=== PATIENT | male | born 1980 | race African-American/Black ===

== ENCOUNTER 2019-04-14 12:37 | Inpatient (IN) | payer OTHER ==
[2019-04-14 17:54] VITALS: BMI 26.6
--- NOTE | 2019-04-14 18:57 | HP ---
CIWA Score - Admission Criteria OASAS Guidelines: Admission for Medically Managed Detox: Requires at least one of the followin. CIWA greater than 12 2. Seizures within the past 24 hours 3. Delirium tremens within the past 24 hours 4. Hallucinations within the past 24 hours 5. Acute intervention needed for co occurring medical disorder 6. Acute intervention needed for co occurring psychiatric disorder 7. Severe withdrawal that cannot be handled at a lower level of care (continued vomiting, continued diarrhea, abnormal vital signs) requiring intravenous medication and/or fluids 8. Admission ROS BHS - HPI Chief Complaint: here for rehab from alcohol and crystal meth 39 yo with HIV, PTSD and depression, says he was admitted for 13 days at [facility] for PTDS/depression and detox from alcohol. Says they referred him here for rehab services. Lives in [place]. PCP- Dr. Dillan Jernigan. Does not work. Lives in a skilled nursing. DUR- no recent meds Allergies/Adverse Reactions: Allergies Allergy/AdvReac Type Severity Reaction Status Date / Time No Known Allergies Allergy Verified 04/14/19 17:41 - Ebola screening Have you traveled outside of the country in the last 21 days: No Have you had contact with anyone from an Ebola affected area: No Patient History - Patient Medical History Hx Human Immunodeficiency Virus (HIV): Yes Other Medical History: PTSD, depression - Patient Surgical History Hx Genitourinary Surgery: Yes (groin hernia surgery) - PPD History Documented Results: Negative w/proof - Smoking Cessation Smoking history: Current every day smoker Have you smoked in the past 12 months: Yes Aproximately how many cigarettes per day: 3 Hx Chewing Tobacco Use: No Initiated information on smoking cessation: Yes 'Breaking Loose' booklet given: 04/14/19 - Substance & Tx. History Hx Alcohol Use: Yes Hx Substance Use Treatment: Yes - Substances abused Alcohol Other (specify): Vodka Substance route: Oral Frequency: 3-6 times per week Amount used: 1/2 bottle Age of first use: 22 Date of last use: 04/13/19 Admission Physical Exam [facility] - Vital Signs Vital Signs: Vital Signs - 24 hr 04/14/19 04/14/19 17:35 18:37 Temperature 97.9 F 97.9 F Pulse Rate 72 72 Respiratory 18 18 Rate Blood Pressure 123/82 123/82 - Physical General Appearance: Yes: No Apparent Distress, Nourished HEENTM: Yes: Within Normal Limits, EOMI Respiratory: Yes: Within Normal Limits, Lungs Clear Neck: Yes: Within Normal Limits, No masses,lesions,Nodules Cardiology: Yes: Within Normal Limits, Regular Rate, S1, S2 Abdominal: Yes: Within Normal Limits, Protuberent Back: Yes: Within Normal Limits, Normal Inspection Musculoskeletal: Yes: Within Normal Limits Extremities: Yes: Within Normal Limits Neurological: Yes: Within Normal Limits, 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 intact, Fully Oriented Integumentary: Yes: Within Normal Limits - Diagnostic (1) Alcohol use disorder Current Visit: Yes Status: Acute (2) Amphetamine abuse Current Visit: Yes Status: Acute (3) HIV (human immunodeficiency virus infection) Current Visit: Yes Status: Acute (4) PTSD (post-traumatic stress disorder) Current Visit: Yes Status: Acute (5) Depression Current Visit: Yes Status: Acute Breathalyzer - Breathalyzer Breathalyzer: 0 Urine Drug Screen - Test Device Lot number: [id number] Expiration date: 12/26/20 - Control Is test valid?: Yes - Results Drug screen NEGATIVE: Yes Inpatient Rehab Admission - Rehab Decision to Admit Inpatient rehab admission?: Yes - Initial Determination Are CD services needed?: Yes Free of communicable disease: Yes Not in need of hospitalization: Yes - Rehab Admission Criteria Previous failed treatment: Yes Poor recovery environment: Yes Comorbidities: Yes Lacks judgement: Yes Patient is meeting Inpatient Rehab admission criteria:: Yes (cocaine and alcohol rehab)
[2019-04-14] MEDS ORDERED: MAGNESIUM HYDROX 2400MG/30ML ORAL SUSPENSION 30 ML CUP PO PRN (19:02)
[2019-04-14] MEDS ORDERED: IBUPROFEN 400 MG TABLET (FP) PO PRN (19:02)
[2019-04-14] MEDS ORDERED: MAGNESIUM CITRATE 300 ML BOTTLE PO PRN (19:02)
[2019-04-14] MEDS ORDERED: MENTHOL/PHENOL 1 EACH UD MM PRN (19:02)
[2019-04-14] MEDS ORDERED: guaiFENesin 200 MG/10 ML 10 ML UNIT-DOSE CUPS PO PRN (19:02)
[2019-04-14] MEDS ORDERED: LOPERAMIDE HCL 2 MG CAPSULE PO PRN (19:02)
[2019-04-14] MEDS ORDERED: P-EPHED 60MG/TRIPROLIDI 2.5MG TABLET PO PRN (19:02)
[2019-04-14] MEDS ORDERED: ACETAMINOPHEN 325 MG TABLET (FP) PO PRN (19:02)
[2019-04-14] MEDS ORDERED: TUBERCULIN PPD 5 TU/0.1ML VIAL ID ONE (20:55)
[2019-04-14] MEDS: traZODone HCL 100 MG TABLET (FP) PO SCH (21:21)
[2019-04-14] MEDS: THIAMINE HCL 100 MG TABLET (FP) PO SCH (21:21)
[2019-04-14] MEDS: NICOTINE POLACRILEX 2 MG GUM BC PRN (21:24)
[2019-04-14] MEDS ORDERED: PRAZOSIN HCL 2 MG CAPSULE PO SCH (22:00)
[2019-04-14] MEDS: PRAZOSIN HCL 1 MG CAPSULE PO SCH (23:29)
[2019-04-15] MEDS: OLANZapine 10 MG TABLET PO SCH (09:54)
[2019-04-15] MEDS: NICOTINE 7 MG/24 HOURS TOPICAL PATCH TD SCH (09:54)
[2019-04-15] MEDS: SERTRALINE HCL 50 MG TABLET (FP) PO SCH (09:55)
[2019-04-15] MEDS: PRENATAL VITAMINS W/ FOLIC ACID TABLET (FP) PO SCH (09:55)
[2019-04-15] MEDS: PATIENT'S OWN MEDICATION (NON-FORMULARY) (Bictegrav/Emtricit/Tenofov Ala 1 EACH) PO SCH (11:00)
[2019-04-15 11:49] LABS: ALBUMIN 3.7 g/dl (3.4-5.0); BILIRUBIN,TOTAL 0.2 mg/dL (0.2-1); BLOOD UREA NITROGEN 9.3 mg/dL (7-18); CALCIUM 8.5 mg/dL (8.5-10.1); CREATININE 1.1 mg/dL (0.55-1.3); TOT PROT 6.9 g/dl (6.4-8.2)
[2019-04-15 11:55] LABS: HEMATOCRIT 35.6 % (35.4-49); HEMOGLOBIN 12.3 GM/dL (11.7-16.9); MCH 31.3 pg (25.7-33.7); MCHC 34.4 g/dl (32.0-35.9); MEAN PLT VOLUME 8.2 fl (7.5-11.1); PLATELET COUNT 211 K/MM3 (134-434); RBC 3.92 M/mm3 (4.00-5.60); RDW 13.4 % (11.9-15.9); WHITE BLOOD COUNT 3.5 K/mm3 (4.0-10.0)
[2019-04-15] MEDS: hydrOXYzine PAMOATE 25 MG CAPSULE (FP) PO PRN (12:56)
[2019-04-15] MEDS: MAG HYDROX/AL HYDROX/SIMETH 30 ML UNIT-DOSE CUP PO PRN (12:56)
[2019-04-15 18:47] LABS: PH,URINE 8.5 (5.0-8.0); URINE APPEARANCE CLEAR; URINE BILIRUBIN NEGATIVE (NEGATIVE); URINE COLOR YELLOW; URINE GLUCOSE (UA) NEGATIVE (NEGATIVE); URINE KETONE NEGATIVE (NEGATIVE); URINE LEUK ESTERASE NEGATIVE (NEGATIVE); URINE NITRITE NEGATIVE (NEGATIVE); URINE PROTEIN NEGATIVE (NEGATIVE); URINE UROBILINOGEN 0.2 mg/dL (0.2-1.0)
[2019-04-15] MEDS: THIAMINE HCL 100 MG TABLET (FP) PO SCH (21:31)
[2019-04-15] MEDS: PRAZOSIN HCL 1 MG CAPSULE PO SCH (21:31)
[2019-04-15] MEDS: traZODone HCL 100 MG TABLET (FP) PO SCH (21:31)
[2019-04-16] MEDS: PATIENT'S OWN MEDICATION (NON-FORMULARY) (Bictegrav/Emtricit/Tenofov Ala 1 EACH) PO SCH (10:14)
[2019-04-16] MEDS: hydrOXYzine PAMOATE 25 MG CAPSULE (FP) PO PRN (10:14)
[2019-04-16] MEDS: PRENATAL VITAMINS W/ FOLIC ACID TABLET (FP) PO SCH (10:14)
[2019-04-16] MEDS: SERTRALINE HCL 50 MG TABLET (FP) PO SCH (10:14)
[2019-04-16] MEDS: NICOTINE 7 MG/24 HOURS TOPICAL PATCH TD SCH (10:14)
[2019-04-16] MEDS: OLANZapine 10 MG TABLET PO SCH (10:15)
[2019-04-16] MEDS: NICOTINE POLACRILEX 2 MG GUM BC PRN (10:16)
[2019-04-16] MEDS: traZODone HCL 100 MG TABLET (FP) PO SCH (21:16)
[2019-04-16] MEDS: THIAMINE HCL 100 MG TABLET (FP) PO SCH (21:17)
[2019-04-16] MEDS: PRAZOSIN HCL 1 MG CAPSULE PO SCH (21:17)
[2019-04-17] MEDS: PATIENT'S OWN MEDICATION (NON-FORMULARY) (Bictegrav/Emtricit/Tenofov Ala 1 EACH) PO SCH (09:54)
[2019-04-17] MEDS: OLANZapine 10 MG TABLET PO SCH (09:54)
[2019-04-17] MEDS: SERTRALINE HCL 50 MG TABLET (FP) PO SCH (09:54)
[2019-04-17] MEDS: PRENATAL VITAMINS W/ FOLIC ACID TABLET (FP) PO SCH (09:54)
[2019-04-17] MEDS: NICOTINE 7 MG/24 HOURS TOPICAL PATCH TD SCH (09:54)
[2019-04-17] MEDS ORDERED: PT OWN MED DRAWER 7, Y5N ONE (09:55)
[2019-04-17] MEDS: THIAMINE HCL 100 MG TABLET (FP) PO SCH (21:53)
[2019-04-17] MEDS: MELATONIN 5 MG TABLETS PO PRN (21:53)
[2019-04-17] MEDS: PRAZOSIN HCL 1 MG CAPSULE PO SCH (21:54)
[2019-04-17] MEDS: traZODone HCL 100 MG TABLET (FP) PO SCH (21:54)
[2019-04-17] MEDS: NICOTINE POLACRILEX 2 MG GUM BC PRN (21:54)
[2019-04-18] MEDS ORDERED: PT OWN MED DRAWER 7, Y5N ONE (08:38)
[2019-04-18] MEDS: PATIENT'S OWN MEDICATION (NON-FORMULARY) (Bictegrav/Emtricit/Tenofov Ala 1 EACH) PO SCH (09:44)
[2019-04-18] MEDS: PRENATAL VITAMINS W/ FOLIC ACID TABLET (FP) PO SCH (09:44)
[2019-04-18] MEDS: SERTRALINE HCL 50 MG TABLET (FP) PO SCH (09:44)
[2019-04-18] MEDS: OLANZapine 10 MG TABLET PO SCH (09:44)
[2019-04-18] MEDS: NICOTINE 7 MG/24 HOURS TOPICAL PATCH TD SCH (09:44)
[2019-04-18] MEDS: MAG HYDROX/AL HYDROX/SIMETH 30 ML UNIT-DOSE CUP PO PRN ×2 (09:45→21:22)
[2019-04-18] MEDS: THIAMINE HCL 100 MG TABLET (FP) PO SCH (21:22)
[2019-04-18] MEDS: traZODone HCL 100 MG TABLET (FP) PO SCH (21:22)
[2019-04-18] MEDS: PRAZOSIN HCL 1 MG CAPSULE PO SCH (21:22)
[2019-04-19] MEDS ORDERED: PT OWN MED DRAWER 7, Y5N ONE (08:53)
[2019-04-19] MEDS: OLANZapine 10 MG TABLET PO SCH (09:45)
[2019-04-19] MEDS: PRENATAL VITAMINS W/ FOLIC ACID TABLET (FP) PO SCH (09:45)
[2019-04-19] MEDS: SERTRALINE HCL 50 MG TABLET (FP) PO SCH (09:46)
[2019-04-19] MEDS: PATIENT'S OWN MEDICATION (NON-FORMULARY) (Bictegrav/Emtricit/Tenofov Ala 1 EACH) PO SCH (09:46)
[2019-04-19] MEDS: NICOTINE 7 MG/24 HOURS TOPICAL PATCH TD SCH (09:46)
[2019-04-19] MEDS: traZODone HCL 100 MG TABLET (FP) PO SCH (21:18)
[2019-04-19] MEDS: PRAZOSIN HCL 1 MG CAPSULE PO SCH (21:18)
[2019-04-19] MEDS: THIAMINE HCL 100 MG TABLET (FP) PO SCH (21:18)
[2019-04-20] MEDS: PRENATAL VITAMINS W/ FOLIC ACID TABLET (FP) PO SCH (09:36)
[2019-04-20] MEDS: OLANZapine 10 MG TABLET PO SCH (09:36)
[2019-04-20] MEDS: NICOTINE 7 MG/24 HOURS TOPICAL PATCH TD SCH (09:36)
[2019-04-20] MEDS: PATIENT'S OWN MEDICATION (NON-FORMULARY) (Bictegrav/Emtricit/Tenofov Ala 1 EACH) PO SCH (09:36)
[2019-04-20] MEDS: SERTRALINE HCL 50 MG TABLET (FP) PO SCH (09:36)
[2019-04-20] MEDS: MAG HYDROX/AL HYDROX/SIMETH 30 ML UNIT-DOSE CUP PO PRN ×2 (09:37→17:56)
[2019-04-20] MEDS: NICOTINE POLACRILEX 2 MG GUM BC PRN (09:39)
[2019-04-20] MEDS: THIAMINE HCL 100 MG TABLET (FP) PO SCH (21:45)
[2019-04-20] MEDS: PRAZOSIN HCL 1 MG CAPSULE PO SCH (21:46)
[2019-04-20] MEDS: traZODone HCL 100 MG TABLET (FP) PO SCH (21:46)
[2019-04-21] MEDS: PRENATAL VITAMINS W/ FOLIC ACID TABLET (FP) PO SCH (09:58)
[2019-04-21] MEDS: SERTRALINE HCL 50 MG TABLET (FP) PO SCH (09:58)
[2019-04-21] MEDS: PATIENT'S OWN MEDICATION (NON-FORMULARY) (Bictegrav/Emtricit/Tenofov Ala 1 EACH) PO SCH (09:58)
[2019-04-21] MEDS: NICOTINE 7 MG/24 HOURS TOPICAL PATCH TD SCH (09:58)
[2019-04-21] MEDS: OLANZapine 10 MG TABLET PO SCH (09:58)
[2019-04-21] MEDS: NICOTINE POLACRILEX 2 MG GUM BC PRN (10:00)
[2019-04-21] MEDS: THIAMINE HCL 100 MG TABLET (FP) PO SCH (21:18)
[2019-04-21] MEDS: traZODone HCL 100 MG TABLET (FP) PO SCH (21:18)
[2019-04-21] MEDS: PRAZOSIN HCL 1 MG CAPSULE PO SCH (21:18)
[2019-04-22] MEDS: NICOTINE 7 MG/24 HOURS TOPICAL PATCH TD SCH (10:21)
[2019-04-22] MEDS: PRENATAL VITAMINS W/ FOLIC ACID TABLET (FP) PO SCH (10:21)
[2019-04-22] MEDS: SERTRALINE HCL 50 MG TABLET (FP) PO SCH (10:21)
[2019-04-22] MEDS: PATIENT'S OWN MEDICATION (NON-FORMULARY) (Bictegrav/Emtricit/Tenofov Ala 1 EACH) PO SCH (10:21)
[2019-04-22] MEDS: OLANZapine 10 MG TABLET PO SCH (10:21)
[2019-04-22] MEDS: NICOTINE POLACRILEX 2 MG GUM BC PRN ×2 (10:23→21:40)
[2019-04-22] MEDS: PRAZOSIN HCL 1 MG CAPSULE PO SCH (21:40)
[2019-04-22] MEDS: THIAMINE HCL 100 MG TABLET (FP) PO SCH (21:40)
[2019-04-22] MEDS: traZODone HCL 100 MG TABLET (FP) PO SCH (21:40)
[2019-04-22] MEDS: MAG HYDROX/AL HYDROX/SIMETH 30 ML UNIT-DOSE CUP PO PRN (21:41)
[2019-04-23] MEDS: PATIENT'S OWN MEDICATION (NON-FORMULARY) (Bictegrav/Emtricit/Tenofov Ala 1 EACH) PO SCH (09:58)
[2019-04-23] MEDS: OLANZapine 10 MG TABLET PO SCH (09:58)
[2019-04-23] MEDS: NICOTINE 7 MG/24 HOURS TOPICAL PATCH TD SCH (09:58)
[2019-04-23] MEDS: PRENATAL VITAMINS W/ FOLIC ACID TABLET (FP) PO SCH (09:58)
[2019-04-23] MEDS: SERTRALINE HCL 50 MG TABLET (FP) PO SCH (09:58)
[2019-04-23] MEDS: MAG HYDROX/AL HYDROX/SIMETH 30 ML UNIT-DOSE CUP PO PRN (09:59)
--- NOTE | 2019-04-23 14:56 | PN ---
S Progress Note Note: Patient was approached at bedside for interview. 

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
[2019-04-23] MEDS: traZODone HCL 100 MG TABLET (FP) PO SCH (21:22)
[2019-04-23] MEDS: THIAMINE HCL 100 MG TABLET (FP) PO SCH (21:22)
[2019-04-23] MEDS: PRAZOSIN HCL 1 MG CAPSULE PO SCH (21:22)
[2019-04-24] MEDS: PRENATAL VITAMINS W/ FOLIC ACID TABLET (FP) PO SCH (10:05)
[2019-04-24] MEDS: SERTRALINE HCL 50 MG TABLET (FP) PO SCH (10:05)
[2019-04-24] MEDS: OLANZapine 10 MG TABLET PO SCH (10:05)
[2019-04-24] MEDS: NICOTINE 7 MG/24 HOURS TOPICAL PATCH TD SCH (10:05)
[2019-04-24] MEDS: PATIENT'S OWN MEDICATION (NON-FORMULARY) (Bictegrav/Emtricit/Tenofov Ala 1 EACH) PO SCH (10:06)
[2019-04-24] MEDS: MAG HYDROX/AL HYDROX/SIMETH 30 ML UNIT-DOSE CUP PO PRN (10:07)
[2019-04-24] MEDS: NICOTINE POLACRILEX 2 MG GUM BC PRN (10:09)
[2019-04-24] MEDS: THIAMINE HCL 100 MG TABLET (FP) PO SCH (21:14)
[2019-04-24] MEDS: PRAZOSIN HCL 1 MG CAPSULE PO SCH (21:15)
[2019-04-24] MEDS: traZODone HCL 100 MG TABLET (FP) PO SCH (21:15)
[2019-04-25] MEDS: PATIENT'S OWN MEDICATION (NON-FORMULARY) (Bictegrav/Emtricit/Tenofov Ala 1 EACH) PO SCH (09:58)
[2019-04-25] MEDS: OLANZapine 10 MG TABLET PO SCH (09:59)
[2019-04-25] MEDS: PRENATAL VITAMINS W/ FOLIC ACID TABLET (FP) PO SCH (09:59)
[2019-04-25] MEDS: NICOTINE 7 MG/24 HOURS TOPICAL PATCH TD SCH (09:59)
[2019-04-25] MEDS: SERTRALINE HCL 50 MG TABLET (FP) PO SCH (09:59)
[2019-04-25] MEDS: PRAZOSIN HCL 1 MG CAPSULE PO SCH (21:31)
[2019-04-25] MEDS: THIAMINE HCL 100 MG TABLET (FP) PO SCH (21:31)
[2019-04-25] MEDS: traZODone HCL 100 MG TABLET (FP) PO SCH (21:31)
[2019-04-26] MEDS: SERTRALINE HCL 50 MG TABLET (FP) PO SCH (09:33)
[2019-04-26] MEDS: OLANZapine 10 MG TABLET PO SCH (09:33)
[2019-04-26] MEDS: PRENATAL VITAMINS W/ FOLIC ACID TABLET (FP) PO SCH (09:33)
[2019-04-26] MEDS: NICOTINE 7 MG/24 HOURS TOPICAL PATCH TD SCH (09:33)
[2019-04-26] MEDS: PATIENT'S OWN MEDICATION (NON-FORMULARY) (Bictegrav/Emtricit/Tenofov Ala 1 EACH) PO SCH (09:33)
[2019-04-26] MEDS: PRAZOSIN HCL 1 MG CAPSULE PO SCH (21:31)
[2019-04-26] MEDS: NICOTINE POLACRILEX 2 MG GUM BC PRN (21:32)
[2019-04-26] MEDS: MAG HYDROX/AL HYDROX/SIMETH 30 ML UNIT-DOSE CUP PO PRN (21:32)
[2019-04-26] MEDS: traZODone HCL 100 MG TABLET (FP) PO SCH (21:32)
[2019-04-26] MEDS: THIAMINE HCL 100 MG TABLET (FP) PO SCH (21:32)
[2019-04-27] MEDS ORDERED: PT OWN MED DRAWER 7, Y5N ONE (09:20)
[2019-04-27] MEDS: NICOTINE 7 MG/24 HOURS TOPICAL PATCH TD SCH (10:20)
[2019-04-27] MEDS: SERTRALINE HCL 50 MG TABLET (FP) PO SCH (10:20)
[2019-04-27] MEDS: NICOTINE POLACRILEX 2 MG GUM BC PRN ×4 (10:20→22:00)
[2019-04-27] MEDS: PATIENT'S OWN MEDICATION (NON-FORMULARY) (Bictegrav/Emtricit/Tenofov Ala 1 EACH) PO SCH (10:20)
[2019-04-27] MEDS: OLANZapine 10 MG TABLET PO SCH (10:20)
[2019-04-27] MEDS: PRENATAL VITAMINS W/ FOLIC ACID TABLET (FP) PO SCH (10:20)
[2019-04-27] MEDS: MAG HYDROX/AL HYDROX/SIMETH 30 ML UNIT-DOSE CUP PO PRN (22:00)
[2019-04-27] MEDS: THIAMINE HCL 100 MG TABLET (FP) PO SCH (22:01)
[2019-04-27] MEDS: MELATONIN 5 MG TABLETS PO PRN (22:01)
[2019-04-27] MEDS: PRAZOSIN HCL 1 MG CAPSULE PO SCH (22:01)
[2019-04-27] MEDS: traZODone HCL 100 MG TABLET (FP) PO SCH (22:01)
--- NOTE | 2019-04-28 06:20 | PN ---
[facility] Progress Note Note: Patient is scheduled for discharge today. Scripts for 30 days supply of medications(Zoloft 50 mg/day, Trazadone 100 mg/hs, Prazosin 2 mg/hs, Zyprexa 10 mg/day) are electronically transmitted to [facility] at [address] [place] [id number]
[2019-04-28 06:47] VITALS: BP 122/85; PULSE 84; TEMP 97.6
[2019-04-28] MEDS ORDERED: PT OWN MED DRAWER 7, Y5N ONE (08:51)
[2019-04-28] MEDS: OLANZapine 10 MG TABLET PO SCH (09:09)
[2019-04-28] MEDS: SERTRALINE HCL 50 MG TABLET (FP) PO SCH (09:09)
[2019-04-28] MEDS: PRENATAL VITAMINS W/ FOLIC ACID TABLET (FP) PO SCH (09:09)
[2019-04-28] MEDS: PATIENT'S OWN MEDICATION (NON-FORMULARY) (Bictegrav/Emtricit/Tenofov Ala 1 EACH) PO SCH (09:09)
[2019-04-28] MEDS: NICOTINE 7 MG/24 HOURS TOPICAL PATCH TD SCH (09:09)
[2019-04-28] MEDS: NICOTINE POLACRILEX 2 MG GUM BC PRN (09:12)
--- NOTE | 2019-04-28 12:53 | PN ---
[facility] Progress Note Note: PATIENT COMPLETED REHAB TODAY AND IS SCHEDULED TO FOLLOW UP WITH [facility] 04/29/19. PATIENT STATES HE ACCOMPLISHED ALL REHAB GOALS AND WAS PLEASED WITH [facility] PROGRAM. PATIENT ENCOURAGED TO CONTINUE WITH GROUP MEETINGS TO PREVENT RELAPSE AND TO FOLLOW UP WITH PCP WITHIN ONE WEEK OF DISCHARGE TO CONTINUE MEDICAL MANAGEMENT. PATIENT IS MEDICALLY STABLE AND DENIES SI/HI. MEDICATION SENT TO PREFERRED PHARMACY. Vital Signs Temperature 97.6 F 04/28/19 06:46 Pulse Rate 84 04/28/19 06:46 Respiratory Rate 18 04/28/19 06:46 Blood Pressure 122/85 04/28/19 06:46 O2 Sat by Pulse Oximetry (%) Laboratory Tests 04/14/19 04/14/19 04/14/19 08:20 08:20 08:20 WBC 3.5 L RBC 3.92 L Hgb 12.3 Hct 35.6 MCV 91.0 MCH 31.3 MCHC 34.4 RDW 13.4 Plt Count 211 MPV 8.2 Sodium 142 Potassium 4.0 Chloride 105 Carbon Dioxide 31 Anion Gap 6 L BUN 9.3 Creatinine 1.1 Est GFR (CKD-EPI)AfAm 98.18 Est GFR (CKD-EPI)NonAf 84.71 Random Glucose 102 Calcium 8.5 Total Bilirubin 0.2 AST 112 H ALT 177 H Alkaline Phosphatase 64 Total Protein 6.9 Albumin 3.7 Urine Color Urine Appearance Urine pH Ur Specific [place] Urine Protein Urine Glucose (UA) Urine Ketones Urine Blood Urine Nitrite Urine Bilirubin Urine Urobilinogen Ur Leukocyte Esterase Urine WBC (Auto) Urine RBC (Auto) Urine Casts (Auto) U Pathogenic Cast Auto U Epithel Cells (Auto) U Sm Round Cell (Auto) Urine Crystals (Auto) Urine Bacteria (Auto) RPR Titer Nonreactive 04/14/19 15:45 WBC RBC Hgb Hct MCV MCH MCHC RDW Plt Count MPV Sodium Potassium Chloride Carbon Dioxide Anion Gap BUN Creatinine Est GFR (CKD-EPI)AfAm Est GFR (CKD-EPI)NonAf Random Glucose Calcium Total Bilirubin AST ALT Alkaline Phosphatase Total Protein Albumin Urine Color Yellow Urine Appearance Clear Urine pH 8.5 H Ur Specific [place] 1.005 L Urine Protein Negative Urine Glucose (UA) Negative Urine Ketones Negative Urine Blood Negative Urine Nitrite Negative Urine Bilirubin Negative Urine Urobilinogen 0.2 Ur Leukocyte Esterase Negative Urine WBC (Auto) No Result Required. Urine RBC (Auto) No Result Required. Urine Casts (Auto) No Result Required. U Pathogenic Cast Auto No Result Required. U Epithel Cells (Auto) No Result Required. U Sm Round Cell (Auto) No Result Required. Urine Crystals (Auto) No Result Required. Urine Bacteria (Auto) No Result Required. RPR Titer Ambulatory Orders Bictegrav/Emtricit/Tenofov Ala [Biktarvy 50-200-25 mg Tablet] 1 each PO DAILY # 30 tablet 04/28/19 Olanzapine [Zyprexa] 10 mg PO DAILY #30 tablet 04/28/19 Prazosin HCl [Minipress -] 2 mg PO HS #30 capsule 04/28/19 Sertraline HCl [Zoloft -] 50 mg PO DAILY #30 tablet 04/28/19 traZODone HCL [Trazodone HCl] 100 mg PO HS #30 tablet 04/28/19
== END 2019-04-28 09:10 | disposition home or self-care (01) | DRG 775 ==
LOC: YASAS 12:37 → Y3W 19:40
PROVIDERS: ADMIT Neuromusculoskeletal Medicine & OMM; ATTEND Neuromusculoskeletal Medicine & OMM
PROC: HZ42ZZZ Group Counseling for Substance Abuse Treatment, Cognitive-Behavioral (ICD-10-PCS; principal; 2019-04-14)
DX: F10.10 Alcohol abuse, uncomplicated (principal); F15.10 Other stimulant abuse, uncomplicated; F17.210 Nicotine dependence, cigarettes, uncomplicated; F19.24 Other psychoactive substance dependence with psychoactive substance-induced mood disorder; F43.10 Post-traumatic stress disorder, unspecified; F32.9 Major depressive disorder, single episode, unspecified; G47.00 Insomnia, unspecified; Z91.19 Patient's noncompliance with other medical treatment and regimen
CPT/HCPCS: 36415; 80053; 81003; 85027; 86593